=== PATIENT | male | born 1940 | race Caucasian/White ===

== ENCOUNTER 2018-03-09 01:38 | Emergency (ER) | payer MEDICARE, MEDICAID ==
[2018-03-09] MEDS ORDERED: predniSONE TAB* 20 MG PO ONE (02:37)
[2018-03-09] MEDS ORDERED: Clindamycin CAP* 150 MG PO ONE (02:38)
--- NOTE | 2018-03-09 03:13 | ED ---
Skin Complaint - HPI Summary HPI Summary: This is scribe Ric Jones documenting for attending Dr. Amanda Renae MD. A 77 y/o male presents to ED c/o of swelling on his right side cheek due to bed bug bite. As per triage, "77 y/o male denying any sig PMH in ER for "bed bug to face and now swelling to the same side" Pt with notable swelling to right face. No airway impairment". According to the patient, he has at a friends house when he got bit. He saw the bite yesterday morning around 0900. He noted that the swelling with non-intense pain reaching 2/10 in severity. Additionally, there is no itching. He believes that the bite is basically gone as he stated "you should have seen it before". He also noted that he had gland swelling in his neck but it has gone down. He is not wearing the same clothes as when he got bit by the beg bug. He put triple antibiotic ointment and steroidal cream on the swelling area. - History of Current Complaint Chief Complaint: EDRashSkinAbscess Time Seen by Provider: 03/09/18 02:28 Stated Complaint: FACIAL INJURY Hx Obtained From: Patient Onset/Duration: Started Days Ago - 24 hours, Still Present Timing: Constant Onset Severity: Mild Current Severity: Mild Pain Intensity: 2 Pain Scale Used: 0-10 Numeric Skin Location: Face - right side cheeck Character: Swelling, Redness Aggravating Symptom(s): Nothing Alleviating Symptom(s): Nothing Associated Signs & Symptoms: Negative - Allergy/Home Medications Allergies/Adverse Reactions: Allergies Allergy/AdvReac Type Severity Reaction Status Date / Time No Known Allergies Allergy Verified 05/12/17 12:02 PMH/Surg Hx/FS Hx/Imm Hx Endocrine/Hematology History: Denies: Hx Diabetes Cardiovascular History: Denies: Hx Hypertension Infectious Disease History: No Infectious Disease History: Denies: Traveled Outside the [place] in Last 30 Days - Family History Known Family History: Negative: Diabetes - Social History Alcohol Use: Daily Substance Use Type: Reports: None Smoking Status (MU): Former Smoker Review of Systems Negative: Fever Positive: Other - POSITIVE: Redness and swelling on right side of cheeck All Other Systems Reviewed And Are Negative: Yes Physical Exam - Summary Physical Exam Summary: VITAL SIGNS: Reviewed. GENERAL: Patient is a well-developed and nourished MALE who is lying comfortable in the stretcher. Patient is not in any acute respiratory distress. HEAD AND FACE: No signs of trauma. No ecchymosis, hematomas or skull depressions. No sinus tenderness. EYES: PERRLA, EOMI x 2, No injected conjunctiva, no nystagmus. EARS: Hearing grossly intact. Ear canals and tympanic membranes are within normal limits. MOUTH: Oropharynx within normal limits. NECK: Supple, trachea is midline, no adenopathy, no JVD, no carotid bruit, no c- spine tenderness, neck with full ROM. CHEST: Symmetric, no tenderness at palpation LUNGS: Clear to auscultation bilaterally. No wheezing or crackles. CVS: Regular rate and rhythm, S1 and S2 present, no murmurs or gallops appreciated. ABDOMEN: Soft, non-tender. No signs of distention. No rebound no guarding, and no masses palpated. Bowel sounds are normal. EXTREMITIES: FROM in all major joints, no edema, no cyanosis or clubbing. NEURO: Alert and oriented x 3. No acute neurological deficits. Speech is normal and follows commands. SKIN: Dry and warm. Swelling with redness and warmth on upper side of cheeck right side of face without tenderness and itching. Triage Information Reviewed: Yes Vital Signs On Initial Exam: Initial Vitals Temp Pulse Resp BP Pulse Ox 97.2 F 97 15 132/86 99 03/09/18 02:13 03/09/18 02:13 03/09/18 02:13 03/09/18 02:13 03/09/18 02:13 Vital Signs Reviewed: Yes Diagnostics - Vital Signs Vital Signs Temp Pulse Resp BP Pulse Ox 03/09/18 02:13 97.2 F 97 15 132/86 99 - Laboratory Lab Statement: Any lab studies that have been ordered have been reviewed, and results considered in the medical decision making process. Course/Dx - Course Course Of Treatment: A 77 y/o male presents to ED c/o of swelling on his right side cheek due to bed bug bite. No laboratory scans were done. In the ED course , the patient recieved Deltasone and Cleocin. Patient has right side cheek redness with no itching, no pain. Possible cellulitis. UC action with prednisone and clindamycin. Pt will be discharged with a diagnosis of cellulitis. Pt is to follow up with PCP in 1-2 days. Pt is agreeable with this plan. - Diagnoses Provider Diagnoses: Cellulitis Discharge - Sign-Out/Discharge Documenting (check all that apply): Patient Departure - DISCHARGE - Discharge Plan Condition: Stable Disposition: HOME Prescriptions: Clindamycin Cap(NF) [Clindamycin Cap 300 mg Cap(NF)] 300 mg PO Q6H #30 cap predniSONE TAB* [Deltasone TAB*] 50 mg PO DAILY #5 tab Patient Education Materials: Cellulitis (ED) Referrals: Yusef Bermudez MD [Primary Care Provider] - 2 Days Additional Instructions: FOLLOW UP WITH PRIMARY CARE PHYSICIAN IN 1-2 DAYS. RETURN TO ED FOR ANY NEW OR WORSENING SYMPTOMS.
[2018-03-09 03:37] VITALS: BP 128/82
== END 2018-03-09 03:34 | disposition home or self-care (01) ==
LOC: ED 01:38
DX: L03.211 Cellulitis of face (principal); Z87.891 Personal history of nicotine dependence
CPT/HCPCS: 99282; A9270-GY; J7512

== ENCOUNTER 2023-12-19 19:27 | Inpatient (IN) ==
[2023-12-19] MEDS: Morphine 4 MG/ML VIAL (1 ml) IV ONE ×2 (20:53→21:13)
[2023-12-19] MEDS: Iodixanol (CONTRAST) 320 MG/ML 100 ML SDV IV ONE (22:26)
[2023-12-19 22:47] LABS: ABS Basophils 0.1 10^3/uL (0.0-0.1); ABS Eosinophils 0.1 10^3/uL (0.0-0.5); ABS Lymphocytes 0.8 10^3/uL (1.0-4.8); ABS Monocytes 1.3 10^3/uL (0.0-1.1); ABS Neutrophils 9.8 10^3/uL (1.5-7.6); Eosinophil % 0.9 %; Hematocrit 34.7 % (38-53); Lymphocyte % 6.6 %; Mean Corpuscular Hemoglobin 24.6 pg (27-33); Mean Corpuscular Hgb Conc 31.7 g/dL (31-36); Mean Corpuscular Volume 77.8 fL (80-97); Mean Platelet Volume 8.1 fL (7.5-11.2); Platelet Count 222 10^3/uL (150-450); Red Blood Count 4.47 10^6/uL (4.06-5.63); Red Cell Distribution Width 15.5 % (12-17)
[2023-12-19 22:53] LABS: INR 1.02 (0.83-1.13)
[2023-12-20 00:10] LABS: Albumin 3.5 g/dL (3.2-5.2); Albumin/Globulin Ratio 1.6 (1-3); Calcium 9.2 mg/dL (8.6-10.3); Creatinine, Serum 1.13 mg/dL (0.67-1.17); Globulin 2.2 g/dL (2-4); Potassium 3.5 mmol/L (3.5-5.0); Total Bilirubin 0.4 mg/dL (0.2-1.0); Total Protein 5.7 g/dL (6.4-8.9); eGFR CKD-EPI 64.9 (>60)
[2023-12-20] MEDS ORDERED: Morphine 4 MG/ML VIAL (1 ml) ONE (03:30)
[2023-12-20] MEDS: Acetaminophen IV 1 GM/100ML 1,000 MG/100 ML BAG IV PRN (05:12)
[2023-12-20 05:39] LABS: ABS Basophils 0.1 10^3/uL (0.0-0.1); ABS Eosinophils 0.2 10^3/uL (0.0-0.5); ABS Monocytes 1.5 10^3/uL (0.0-1.1); ABS Neutrophils 8.5 10^3/uL (1.5-7.6); ABS Nucleated RBC 0.01 10^3/ul; Eosinophil % 1.5 %; Hematocrit 36.1 % (38-53); Hemoglobin 11.4 g/dL (13.2-16.3); Mean Corpuscular Hemoglobin 24.4 pg (27-33); Mean Corpuscular Hgb Conc 31.7 g/dL (31-36); Mean Corpuscular Volume 77.1 fL (80-97); Mean Platelet Volume 8.7 fL (7.5-11.2); Nucleated Red Blood Cells % 0.1 %/100WBC (0.0-0.8); Platelet Count 225 10^3/uL (150-450); Red Blood Count 4.68 10^6/uL (4.06-5.63); Red Cell Distribution Width 15.3 % (12-17); White Blood Count 11.3 10^3/uL (3.6-10.2)
[2023-12-20 05:55] LABS: Calcium 9.1 mg/dL (8.6-10.3); Creatinine, Serum 0.87 mg/dL (0.67-1.17); Potassium 3.7 mmol/L (3.5-5.0); eGFR CKD-EPI 86.1 (>60)
[2023-12-20] MEDS: Heparin 5000 UNITS/ML 1 mL VIAL SUBCUT SCH (08:18)
[2023-12-20 08:55] LABS: Urine Appearance Clear; Urine Bilirubin Negative (Negative); Urine Blood Negative (Negative); Urine Color Light-Yellow; Urine Glucose Negative (Negative); Urine Ketones 1+ (Negative); Urine Nitrite 2+ (Negative); Urine Protein Trace (Negative); Urine Specific Gravity 1.044 (1.002-1.030); Urine Urobilinogen Negative (Negative)
[2023-12-20] MEDS ORDERED: Heparin 5000 UNITS/ML 1 mL VIAL SUBCUT SCH (09:00)
[2023-12-20 09:06] LABS: Urine Bacteria 2+ /HPF (Absent); Urine Red Blood Cell 1+(3-5/hpf) /HPF (0-Trace); Urine White Blood Cell 3+(>20/hpf) /HPF (0-Trace)
[2023-12-21 05:17] LABS: Hematocrit 33.8 % (38-53); Hemoglobin 10.9 g/dL (13.2-16.3); Mean Corpuscular Hemoglobin 24.8 pg (27-33); Mean Corpuscular Hgb Conc 32.1 g/dL (31-36); Mean Corpuscular Volume 77.1 fL (80-97); Mean Platelet Volume 8.6 fL (7.5-11.2); Platelet Count 206 10^3/uL (150-450); Red Blood Count 4.39 10^6/uL (4.06-5.63); Red Cell Distribution Width 15.6 % (12-17); White Blood Count 9.8 10^3/uL (3.6-10.2)
[2023-12-21 05:20] LABS: ABS Basophils 0.1 10^3/uL (0.0-0.1); ABS Eosinophils 0.3 10^3/uL (0.0-0.5); ABS Lymphocytes 0.8 10^3/uL (1.0-4.8); ABS Monocytes 1.6 10^3/uL (0.0-1.1); ABS Nucleated RBC 0.01 10^3/ul; Eosinophil % 3.5 %; Lymphocyte % 8.3 %; Nucleated Red Blood Cells % 0.1 %/100WBC (0.0-0.8)
[2023-12-21 05:32] LABS: Calcium 8.8 mg/dL (8.6-10.3); Creatinine, Serum 0.8 mg/dL (0.67-1.17); Potassium 3.9 mmol/L (3.5-5.0); eGFR CKD-EPI 88.4 (>60)
[2023-12-21] MEDS: Heparin 5000 UNITS/ML 1 mL VIAL SUBCUT ONE (20:12)
[2023-12-22 06:39] LABS: Hematocrit 33.3 % (38-53); Hemoglobin 10.7 g/dL (13.2-16.3); Mean Corpuscular Hemoglobin 24.7 pg (27-33); Mean Platelet Volume 8.8 fL (7.5-11.2); Platelet Count 201 10^3/uL (150-450); Red Blood Count 4.33 10^6/uL (4.06-5.63); Red Cell Distribution Width 15.6 % (12-17); White Blood Count 8.8 10^3/uL (3.6-10.2)
[2023-12-22 06:55] LABS: Calcium 8.7 mg/dL (8.6-10.3); Creatinine, Serum 0.82 mg/dL (0.67-1.17); Potassium 3.6 mmol/L (3.5-5.0); eGFR CKD-EPI 87.7 (>60)
[2023-12-22 07:47] LABS: ABS Basophils 0.1 10^3/uL (0.0-0.1); ABS Eosinophils 0.3 10^3/uL (0.0-0.5); ABS Lymphocytes 0.8 10^3/uL (1.0-4.8); ABS Monocytes 1.6 10^3/uL (0.0-1.1); ABS Neutrophils 6.1 10^3/uL (1.5-7.6); ABS Nucleated RBC 0.01 10^3/ul; Anisocytosis 1+; Eosinophil % 3.3 %; Hypochromasia 1+; Lymphocyte % 9.4 %; Nucleated Red Blood Cells % 0.1 %/100WBC (0.0-0.8)
[2023-12-22] MEDS ORDERED: cefTRIAXone 1 gm/50 mL D5W 1 GM/50 ML BAG IV SCH (12:00)
[2023-12-22] MEDS ORDERED: fentaNYL 100 mcg/2 ml 50 MCG/ML VIAL ONE ×3 (12:45→17:12)
[2023-12-22] MEDS ORDERED: Rocuronium 50 mg VIAL 10 mg/ml 5 ml VIAL (50 mg) ONE ×3 (12:45→15:24)
[2023-12-22] MEDS ORDERED: Phenylephrine IV 10 MG/ML 1 ml VIAL ONE (12:45)
[2023-12-22] MEDS ORDERED: Propofol 10 MG/ML 20 ML BTL ONE (12:45)
[2023-12-22] MEDS ORDERED: Dexamethasone IV 4 MG/ML VIAL 1 ml VIAL ONE (12:45)
[2023-12-22] MEDS ORDERED: Sterile Water for Inj 10 ML ONE (12:45)
[2023-12-22] MEDS ORDERED: Midazolam 2 mg/2 ml VIAL 1 mg/ml 2 ml VIAL (2 mg) ONE (12:45)
[2023-12-22] MEDS ORDERED: Ondansetron 4 mg VIAL 2 MG/ML 2 ml VIAL ONE (12:45)
[2023-12-22] MEDS ORDERED: Lidocaine 2% PF 5 ML VIAL ONE (12:45)
[2023-12-22] MEDS ORDERED: ceFAZolin 2 GM in NS PREMIX 2 GM/100 ML BAG IVPB ONE (12:56)
[2023-12-22] MEDS ORDERED: Bupivacaine 0.5% W/EPI SDV 10 ML VIAL INJ ONE (13:38)
[2023-12-22] MEDS ORDERED: Vancomycin 1,000 MG VIAL ONE (13:38)
[2023-12-22] MEDS ORDERED: Albumin Human 5% 12.5 GM/250 ML BTL IV ONE (14:40)
[2023-12-22] MEDS ORDERED: Glycopyrrolate IV 0.2 MG/ML 1 ML VIAL ONE ×2 (15:54→15:56)
[2023-12-22] MEDS ORDERED: Acetaminophen IV 1 GM/100ML 1,000 MG/100 ML BAG IV ONE (16:08)
[2023-12-22] MEDS ORDERED: Naloxone 0.4 mg VIAL 0.4 mg/ml 1 ml VIAL IV PRN ×2 (17:04)
[2023-12-22] MEDS ORDERED: Ondansetron 4 mg VIAL 2 MG/ML 2 ml VIAL IV PRN (17:04)
[2023-12-22] MEDS: fentaNYL 100 mcg/2 ml 50 MCG/ML VIAL IV PRN (17:13)
[2023-12-22] MEDS: Lactated Ringers 1000 ml BAG 1,000 ML IV ONE (18:43)
[2023-12-22 19:00] LABS: ABS Basophils 0.1 10^3/uL (0.0-0.1); ABS Lymphocytes 0.4 10^3/uL (1.0-4.8); ABS Monocytes 0.6 10^3/uL (0.0-1.1); ABS Neutrophils 9.2 10^3/uL (1.5-7.6); Eosinophil % 0.3 %; Hematocrit 33.1 % (38-53); Hemoglobin 10.6 g/dL (13.2-16.3); Lymphocyte % 3.8 %; Mean Corpuscular Hemoglobin 24.5 pg (27-33); Mean Corpuscular Volume 76.7 fL (80-97); Mean Platelet Volume 8.4 fL (7.5-11.2); Platelet Count 200 10^3/uL (150-450); Red Blood Count 4.32 10^6/uL (4.06-5.63); Red Cell Distribution Width 15.5 % (12-17); White Blood Count 10.3 10^3/uL (3.6-10.2)
[2023-12-22] MEDS: Magnesium Hydroxide LIQ 30 ML UDC PO PRN (21:31)
[2023-12-22] MEDS: Senna TAB 8.6 mg TAB PO PRN (21:31)
[2023-12-22] MEDS: ceFAZolin 1 GM in Dextrose 1 GM/50 ML BAG IVPB SCH (22:32)
[2023-12-23 06:11] LABS: Hematocrit 32.3 % (38-53); Hemoglobin 10.2 g/dL (13.2-16.3); Mean Corpuscular Hemoglobin 24.4 pg (27-33); Mean Corpuscular Hgb Conc 31.5 g/dL (31-36); Mean Corpuscular Volume 77.4 fL (80-97); Mean Platelet Volume 8.5 fL (7.5-11.2); Platelet Count 209 10^3/uL (150-450); Red Blood Count 4.17 10^6/uL (4.06-5.63); Red Cell Distribution Width 15.6 % (12-17)
[2023-12-23 06:24] LABS: Calcium 8.7 mg/dL (8.6-10.3); Creatinine, Serum 0.75 mg/dL (0.67-1.17); Potassium 4.1 mmol/L (3.5-5.0); eGFR CKD-EPI 90.1 (>60)
[2023-12-23 08:52] LABS: ABS Lymphocytes 0.5 10^3/uL (1.0-4.8); ABS Monocytes 1.7 10^3/uL (0.0-1.1); ABS Neutrophils 10.8 10^3/uL (1.5-7.6); ABS Nucleated RBC 0.01 10^3/ul; Lymphocyte % 4.1 %; Nucleated Red Blood Cells % 0.1 %/100WBC (0.0-0.8)
[2023-12-23 19:00] LABS: Hematocrit 30.1 % (38-53); Hemoglobin 9.6 g/dL (13.2-16.3); Mean Corpuscular Hemoglobin 24.3 pg (27-33); Mean Corpuscular Hgb Conc 32.1 g/dL (31-36); Mean Corpuscular Volume 75.8 fL (80-97); Mean Platelet Volume 8.4 fL (7.5-11.2); Platelet Count 237 10^3/uL (150-450); Red Blood Count 3.97 10^6/uL (4.06-5.63); Red Cell Distribution Width 15.6 % (12-17); White Blood Count 14.5 10^3/uL (3.6-10.2)
[2023-12-23 19:06] LABS: ABS Basophils 0.1 10^3/uL (0.0-0.1); ABS Lymphocytes 0.7 10^3/uL (1.0-4.8); ABS Monocytes 2.4 10^3/uL (0.0-1.1); ABS Neutrophils 11.3 10^3/uL (1.5-7.6); ABS Nucleated RBC 0.01 10^3/ul; Lymphocyte % 5.1 %
[2023-12-23 19:56] LABS: Albumin 3.3 g/dL (3.2-5.2); Albumin/Globulin Ratio 1.5 (1-3); Calcium 8.9 mg/dL (8.6-10.3); Creatinine, Serum 0.83 mg/dL (0.67-1.17); Globulin 2.2 g/dL (2-4); Total Bilirubin 0.7 mg/dL (0.2-1.0); Total Protein 5.5 g/dL (6.4-8.9); eGFR CKD-EPI 87.4 (>60)
[2023-12-24 05:41] LABS: Hematocrit 26.6 % (38-53); Hemoglobin 8.6 g/dL (13.2-16.3); Mean Corpuscular Hemoglobin 24.5 pg (27-33); Mean Corpuscular Hgb Conc 32.4 g/dL (31-36); Mean Corpuscular Volume 75.7 fL (80-97); Mean Platelet Volume 8.9 fL (7.5-11.2); Platelet Count 206 10^3/uL (150-450); Red Blood Count 3.51 10^6/uL (4.06-5.63); Red Cell Distribution Width 15.9 % (12-17); White Blood Count 11.8 10^3/uL (3.6-10.2)
[2023-12-24 05:52] LABS: ABS Lymphocytes 0.8 10^3/uL (1.0-4.8); ABS Monocytes 2.3 10^3/uL (0.0-1.1); ABS Neutrophils 8.5 10^3/uL (1.5-7.6); Eosinophil % 0.2 %; Lymphocyte % 7.1 %
[2023-12-24 06:03] LABS: Calcium 8.7 mg/dL (8.6-10.3); Creatinine, Serum 0.68 mg/dL (0.67-1.17); Potassium 3.8 mmol/L (3.5-5.0); eGFR CKD-EPI 92.8 (>60)
[2023-12-24 19:00] LABS: Hematocrit 28.5 % (38-53); Mean Corpuscular Hemoglobin 24.1 pg (27-33); Mean Corpuscular Hgb Conc 31.7 g/dL (31-36); Mean Corpuscular Volume 76.2 fL (80-97); Mean Platelet Volume 8.4 fL (7.5-11.2); Platelet Count 220 10^3/uL (150-450); Red Blood Count 3.74 10^6/uL (4.06-5.63); Red Cell Distribution Width 15.7 % (12-17); White Blood Count 13.3 10^3/uL (3.6-10.2)
[2023-12-24 19:43] LABS: ABS Basophils 0.1 10^3/uL (0.0-0.1); ABS Lymphocytes 0.9 10^3/uL (1.0-4.8); ABS Monocytes 2.2 10^3/uL (0.0-1.1); ABS Neutrophils 10.1 10^3/uL (1.5-7.6); Eosinophil % 0.2 %; Lymphocyte % 7.1 %; RBC Morphology Normal (Normal)
[2023-12-25 09:46] LABS: Rapid COVID-19 Molecular Undetected (Undetected)
[2023-12-25 09:55] LABS: ABS Basophils 0.1 10^3/uL (0.0-0.1); ABS Eosinophils 0.1 10^3/uL (0.0-0.5); ABS Lymphocytes 0.6 10^3/uL (1.0-4.8); ABS Monocytes 1.5 10^3/uL (0.0-1.1); ABS Neutrophils 7.8 10^3/uL (1.5-7.6); ABS Nucleated RBC 0.01 10^3/ul; Hematocrit 27.7 % (38-53); Hemoglobin 9.1 g/dL (13.2-16.3); Lymphocyte % 6.2 %; Mean Corpuscular Hemoglobin 24.9 pg (27-33); Mean Corpuscular Hgb Conc 32.9 g/dL (31-36); Mean Corpuscular Volume 75.8 fL (80-97); Mean Platelet Volume 8.6 fL (7.5-11.2); Nucleated Red Blood Cells % 0.1 %/100WBC (0.0-0.8); Platelet Count 208 10^3/uL (150-450); Red Blood Count 3.66 10^6/uL (4.06-5.63); Red Cell Distribution Width 15.5 % (12-17); White Blood Count 10.2 10^3/uL (3.6-10.2)
[2023-12-25 10:13] LABS: Calcium 8.6 mg/dL (8.6-10.3); Creatinine, Serum 0.64 mg/dL (0.67-1.17); Magnesium 1.9 mg/dL (1.9-2.7); Potassium 4.5 mmol/L (3.5-5.0); eGFR CKD-EPI 94.5 (>60)
[2023-12-25 10:30] VITALS: BP 118/78
== END 2023-12-25 12:45 | DRG 522 ==
LOC: ED 19:27 → EDHOLD 19:27 → SUATTDRO 12-20 01:19 → SSU 12-20 03:45
PROVIDERS: ADMIT Internal Medicine; ATTEND Internal Medicine